=== PATIENT | male | born 1990 | race Caucasian/White ===

== ENCOUNTER 2018-08-06 03:09 | Observation (INO) ==
[2018-08-06] MEDS ORDERED: 0.9 % Sodium Chloride 1,000 ML ONE (10:39)
[2018-08-06] MEDS ORDERED: traMADol 50 MG TABLET PO PRN (10:41)
[2018-08-06] MEDS ORDERED: Naloxone 0.4 MG/ML INJ IVP PRN (10:41)
[2018-08-06 11:38] LABS: Basophils % 0.1 %; Eosinophils # 0.6 K/mcL (0.0-0.6); Eosinophils % 8.3 %; Hematocrit 29.4 % (37.5-50.1); Hemoglobin 9.9 g/dL (12.9-16.9); Immature Granulocytes % 0.4 % (0-4); Lymphocytes % 44.6 %; Mean Corpuscular HGB Conc 33.7 g/dL (31.6-35.5); Mean Corpuscular Volume 71.4 fL (83.0-100.0); Mean Platelet Volume 10.2 fL (9.4-12.4); Monocytes # 0.4 K/mcL (0.0-1.3); Monocytes % 5.4 %; Platelet Count 371 K/mcL (140-400); Red Blood Count 4.12 M/mcL (4.19-5.50); Red Cell Distribution Width 20.3 % (11.5-14.5); Segmented Neutrophils % 41.2 %
[2018-08-06 11:39] LABS: Lymphocytes # 3.3 K/mcL (0.6-4.6)
[2018-08-06 11:40] LABS: INR 1.1; Prothrombin Time 11.9 Seconds (9.4-12.1)
[2018-08-06 11:43] LABS: Activated Partial Thrombo Time 39.4 Seconds (26.0-36.0)
[2018-08-06 11:52] LABS: Alanine Aminotransferase 314 Units/L (7-52); Albumin 2.7 g/dL (3.5-5.7); Albumin/Globulin Ratio 0.8 (1.1-2.2); Alkaline Phosphatase 241 Units/L (34-104); Aspartate Amino Transferase 126 Units/L (13-39); BUN/Creatinine Ratio 10 (6-26); Bilirubin,Direct 2.5 mg/dL (0.0-0.2); Bilirubin,Indirect 2.3 mg/dL (0.0-1.2); Bilirubin,Total 4.8 mg/dL (0.3-1.0); Blood Urea Nitrogen 5 mg/dL (6-20); C-Reactive Protein 7 mg/L (Less than 10); Calcium 7.9 mg/dL (8.6-10.3); Carbon Dioxide 27 mEq/L (23-29); Chloride 104 mEq/L (98-107); Globulin 3.5 g/dL (2.4-3.5); Glucose 100 mg/dL (70-105); Magnesium 1.8 mg/dL (1.6-2.6); Osmolality,Calculated 277 (280-300); Phosphorous 3.6 mg/dL (2.7-4.5); Potassium 3.4 mEq/L (3.5-5.1); Sodium 135 mEq/L (136-145); Total Protein 6.2 g/dL (6.4-8.9); eGFR For Non-African Americans > 60 (> 60)
[2018-08-06 12:04] LABS: Target Cells 2+ (Not Present)
[2018-08-06 12:05] LABS: Anisocytosis 1+ (Not Present); Platelet Estimate Normal (Normal)
--- NOTE | 2018-08-06 12:34 | Internal Med History&Physical ---
Date of Encounter: 08/06/18 Time of Encounter: 12:24 Internal Medicine - H&P: HPI Chief complaint: turning yellow/Jaundice. swelling ot the hands b/l Admitted From: Home Plans for Post Hospital Care: Home History of present illness: Mr. Carpenter is a 28 year old male PMH of Hep C, IVU, but report that he has been cleaned for the past 2 months. Patient was transferred to this facility from [facility] due to the concern of elevated liver enzymes and Jaundice. Patient reports that for the past 4 days he has been turning yellow, he denies abdominal pain, nausea, vomiting or poor appetite. Patient also reports that his hands have been getting swelling on and off for about 6 months after he was treated with IV antibiotics for an infection. 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 Denies fever/chills. Past Med Surg Social Fam HX - Past Medical History Medical history: asthma Psychiatric history: depression - Social History Smoking Status: Current every day smoker Packs per day: 1 Smokeless Tobacco Status: No Alcohol use: none Drug use: none Internal Medicine - H&P: Meds Buprenorphine HCl [Subutex] 8 mg SL BID 08/06/18 [History] Allergy/AdvReac Type Severity Reaction Status Date / Time Penicillins Allergy Difficulty Verified 08/06/18 07:07 Breathing All Systems PM: A 10-system review of systems was performed and is negative for pertinent findings except as documented above in the HPI. - Constitutional Constitutional: no anorexia, no chills, no fever(s), no malaise, no weakness - EENT Eyes: no irritation, no pain - Cardiovascular Cardiovascular ROS IM: no chest pain, no dyspnea on exertion, no orthopnea, no palpitations - Respiratory Respiratory: no cough, no dyspnea, no snoring - Gastrointestinal Gastrointestinal: no abdominal pain, no diarrhea, no melena, no nausea, no vomiting - Genitourinary Genitourinary ROS male: no flank pain, no hematuria, no nocturia - Musculoskeletal Musculoskeletal ROS IM: joint swelling (hands b/l. ), no back pain, no numbness, no stiffness - Integumentary Integumentary IM: no erythema, no rash - Neurological Neurological ROS: no headache(s) - Psychiatric Psychiatric: no anxiety, no homicidal ideation, no suicidal ideation - Endocrine Endocrine IM: no cold intolerance, no polyphagia - Hematologic/Lymphatic Hematologic/Lymphatic: no easy bruising - Allergic/Immunologic Additional comments: Rest of the review of system negative. - Constitutional Vitals: Temp Pulse Resp BP Pulse Ox 98.2 F 69 14 128/64 97 08/06/18 10:31 08/06/18 10:31 08/06/18 10:31 08/06/18 10:31 08/06/18 10:31 Exam: General: Alert and oriented x4. In mild distress due to b/l hand pain. Skin: cracked dry lips, multiple track hudson from IV drugs, HEENT: conjunctiva jaundice, EOM, pupils equal, round and reactive. Cardiovascular: Tachycardia, Normal S1 & S2, no rubs, murmurs or gallops. Lungs: CTA, no wheezes or crackles. Abdomen: Soft, non-tender, no rigidity. NABS in all 4 quadrants Extremities: No deformity, no edema or tenderness, no joint swelling or clu bbing. Neurological: Normal cognition and motor skills. Rest of the physical exam is non contributory Internal Med - H&P Results - Labs CBC & Chem 7: 08/06/18 10:41 08/06/18 10:43 Labs: Short CBC 08/06/18 Range/Units 10:41 WBC 7.3 (4.3-11.1) K/mcL Hgb 9.9 L (12.9-16.9) g/dL Hct 29.4 L (37.5-50.1) % Plt Count 371 (140-400) K/mcL Neutrophils # 3.0 (1.6-8.9) K/mcL BMP 08/06/18 10:43 Sodium 135 L Potassium 3.4 L Chloride 104 Carbon Dioxide 27 BUN 5 L Creatinine 0.52 L Glucose 100 Calcium 7.9 L Liver Function 08/06/18 Range/Units 10:43 Total Bilirubin 4.8 H (0.3-1.0) mg/dL Direct Bilirubin 2.5 H (0.0-0.2) mg/dL AST 126 H (13-39) Units/L ALT 314 H (7-52) Units/L Alkaline Phosphatase 241 H (34-104) Units/L Albumin 2.7 L (3.5-5.7) g/dL - Assessment and plan (1) Transaminitis Current Visit: Yes Status: Acute Assessment and plan: Possible due to Hep c. Plan Hepatitis panel GI consult Abd US AM LFts CT abd/pelvis (2) Cellulitis and abscess of hand Current Visit: Yes Status: Acute Assessment and plan: Plan: Patient started on empiric antibiotics x-rays of both hands US of the upper extr b/l to r/o DVT and collections consider ID consult ESR CRP blood culture (3) IVDU (intravenous drug user) Current Visit: Yes Status: Acute Assessment and plan: As per patient he has been clean for about 2 months. Urine drug screen TTE (4) Hypokalemia Current Visit: Yes Status: Acute Assessment and plan: Electrolyte replacement. f/u AM BMP. - Time Spent With Patient Total time spent is greater than 50% in coordination of care (as documented) at patient's floor/unit and/or counseling patient: 25 - 35 minutes
[2018-08-06 12:42] LABS: Amphetamine Screen,Urine Positive ng/mL (Cutoff=1000); Barbiturate Screen,Urine Negative ng/mL (Cutoff=200); Benzodiazepines Screen,Urine Negative ng/mL (Cutoff=200); Cannabinoid Screen,Urine Positive ng/mL (Cutoff = 50); Cocaine Screen,Urine Negative ng/mL (Cutoff= 300); Opiate Screen,Urine Negative ng/mL (Cutoff=300); Phencyclidine Screen,Urine Negative ng/mL (Cutoff=25)
[2018-08-06] MEDS: 0.9 % Sodium Chloride 1,000 ML IVC SCH ×2 (13:28→23:16)
[2018-08-06 13:29] LABS: Hepatitis B Surface Antigen Nonreactive (Nonreactive)
[2018-08-06] MEDS: Nicotine 21 MG PATCH.TD24 TD SCH (18:25)
[2018-08-06] MEDS: *HR* Buprenorphine HCl 8 MG TAB.SUBL SL SCH (19:00)
[2018-08-07 05:08] LABS: Alanine Aminotransferase 261 Units/L (7-52); Albumin 2.7 g/dL (3.5-5.7); Albumin/Globulin Ratio 0.7 (1.1-2.2); Alkaline Phosphatase 229 Units/L (34-104); Aspartate Amino Transferase 97 Units/L (13-39); Bilirubin,Direct 1.8 mg/dL (0.0-0.2); Bilirubin,Indirect 1.8 mg/dL (0.0-1.2); Bilirubin,Total 3.6 mg/dL (0.3-1.0); Globulin 3.7 g/dL (2.4-3.5); Total Protein 6.4 g/dL (6.4-8.9)
[2018-08-07] MEDS: *HR* Buprenorphine HCl 8 MG TAB.SUBL SL SCH ×2 (06:58→19:30)
[2018-08-07] MEDS: Nicotine 21 MG PATCH.TD24 TD SCH (09:56)
[2018-08-07] MEDS ORDERED: *HR* Heparin 5,000 UNIT/ML VIAL IVP PRN (10:58)
[2018-08-07] MEDS ORDERED: *HR* Heparin 5,000 UNIT/ML VIAL IVP ONE (10:58)
[2018-08-07] MEDS: Heparin 25,000 UNIT/500 ML D5W 25,000 UNIT/500 ML BAG IVC SCH (13:35)
[2018-08-07 14:26] LABS: Hematocrit 30.8 % (37.5-50.1); Hemoglobin 10.2 g/dL (12.9-16.9); Mean Corpuscular HGB Conc 33.1 g/dL (31.6-35.5); Mean Corpuscular Hemoglobin 24.6 pg (28.0-33.3); Mean Corpuscular Volume 74.2 fL (83.0-100.0); Mean Platelet Volume 10.3 fL (9.4-12.4); Platelet Count 391 K/mcL (140-400); Red Blood Count 4.15 M/mcL (4.19-5.50); Red Cell Distribution Width 21.3 % (11.5-14.5)
--- NOTE | 2018-08-07 14:55 | Internal Med Progress Note ---
Hospitalist Progress Note - Encounter Date of Encounter: 08/07/18 Time of Encounter: 14:53 - Subjective Interval History: patient seen and evaluated at bedside. He reports improvement of his symptoms, reports that the pain in and swelling in his hands have improved. denies abdominal pain, nausea, vomiting or anorexia. reports that he is eating 100% of his diet. - Exam Vitals: Temp Pulse Resp BP Pulse Ox 98.3 F 71 14 126/71 97 08/07/18 14:35 08/07/18 14:35 08/07/18 14:35 08/07/18 14:35 08/07/18 14:35 Exam: General: Alert and oriented x4. In mild distress due to b/l hand pain. Skin: cracked dry lips, improved from yesterday, multiple track hudson from IV drugs, HEENT: minimal conjunctiva jaundice. Cardiovascular: RRR, Normal S1 & S2, no rubs, murmurs or gallops. Lungs: CTA, no wheezes or crackles. Abdomen: Soft, non-tender, no rigidity. NABS in all 4 quadrants Extremities: No edema or tenderness, no joint swelling or clubbing. Neurological: Normal cognition and motor skills. Rest of the physical exam is non contributory - Assessment and Plan (1) Transaminitis Current Visit: Yes Status: Acute Assessment and Plan: Possible Hep C due to patient Hx of IVDU. LFTs trending down Plan GI has been consulted, will follow recommendations Abd/Pelv CT showed no acute abnormalities Abd US pending f/u LFTs in the morning Acute hepatitis panel sent will continue IV hydration for at 24 more hours. (2) Cellulitis and abscess of hand Current Visit: Yes Status: Acute Assessment and Plan: edema and erythema of the hands has significantly improved. Will continue vancomycin and cipro for at 24 more hours. will de-scale antibiotics after 48 if blood cultures remain negative tramadol 50mg/PO Q6HR PRN for pain control. (3) IVDU (intravenous drug user) Current Visit: Yes Status: Acute Assessment and Plan: Hx of IVDU. On biprenorphine. As per patient he gets his medication at [facility]. (4) Superficial venous thrombosis of both upper extremities Current Visit: Yes Status: Acute Assessment and Plan: Venous dupplex us: Bilateral upper extremity venous duplex exam completed. Positive SVT bilaterally in the Cephalic V and positive SVT in the Basilic V in the left UE. Negative DVT bilaterally. Plan Started patient on full dose anticoagulation as patient is high risk due to his recent hx of IVDU. Hem&Onc consulted to clarify wether patient might need to be on anticoagulation in the outpatient setting. DVT Prophylaxis: Patient on full dose anticoagulation. - Summary of Assessment and Plan Summary of Assessment and Plan: patient to remain in the hospital for at least 24 more hours to continue IV antibiotics. Potential DC tomorrow pending GI evaluation. - Time Spent with Patient Total time spent is greater than 50% in coordination of care (as documented) at patient's floor/unit and/or counseling patient: 25 - 35 minutes Plan of Care Discussed with: patient Internal Medicine: Result - Labs CBC & Chem 7: 08/07/18 14:10 08/06/18 10:43 Labs: Short CBC 08/07/18 Range/Units 14:10 WBC 8.5 (4.3-11.1) K/mcL Hgb 10.2 L (12.9-16.9) g/dL Hct 30.8 L (37.5-50.1) % Plt Count 391 (140-400) K/mcL Liver Function 08/07/18 Range/Units 04:17 Total Bilirubin 3.6 H (0.3-1.0) mg/dL Direct Bilirubin 1.8 H (0.0-0.2) mg/dL AST 97 H (13-39) Units/L ALT 261 H (7-52) Units/L Alkaline Phosphatase 229 H (34-104) Units/L Albumin 2.7 L (3.5-5.7) g/dL - ABG Interpretation ABG results: PT/INR, D-dimer PT 11.9 Seconds (9.4-12.1) 08/06/18 10:41 - Impressions Impressions Abdomen/Pelvis CT 08/06/18 12:19 IMPRESSION: 1. No acute intra-abdominal or intrapelvic process. 2. Minimal amount of free fluid along the right pericolic gutter, of questionable clinical significance. 3. Trace bilateral pleural effusions with mild bibasilar atelectasis. D/ / 08/06/2018 17:54:09 Benji Owens MD / bcarter Interpreting Provider: Benji Owens MD Hand X-Ray 08/06/18 12:19 IMPRESSION: Negative examination the bilateral hands with no acute osseous abnormality. D/ / Blayne James MD / Blayne James MD Interpreting Provider: Blayne James MD Hand X-Ray 08/06/18 12:19 IMPRESSION: Negative examination the bilateral hands with no acute osseous abnormality. D/ / Blayne James MD / Blayne James MD Interpreting Provider: Blayne James MD Echocardiogram 08/07/18 12:21 Impressions: LVEF 60%. Normal left ventricular diastolic function. Normal right ventricular structure and function. Mild tricuspid regurgitation. No pulmonary hypertension. Consult Discharge Plan - Plan Referrals: NONE,PCP [Primary Care Provider] -
[2018-08-07] MEDS: 0.9 % Sodium Chloride 1,000 ML IVC SCH (16:00)
[2018-08-07 20:04] LABS: Heparin anti-factor XA UFH 0.15 IU/mL (0.30-0.70)
[2018-08-07 20:05] LABS: Prothrombin Time 11.1 Seconds (9.4-12.1)
[2018-08-07 20:39] LABS: BUN/Creatinine Ratio 15 (6-26); Blood Urea Nitrogen 7 mg/dL (6-20); Calcium 8.1 mg/dL (8.6-10.3); Carbon Dioxide 20 mEq/L (23-29); Chloride 105 mEq/L (98-107); Glucose 105 mg/dL (70-105); Magnesium 1.8 mg/dL (1.6-2.6); Osmolality,Calculated 274 (280-300); Phosphorous 3.1 mg/dL (2.7-4.5); Potassium 4.2 mEq/L (3.5-5.1); Sodium 133 mEq/L (136-145); eGFR For Non-African Americans > 60 (> 60)
[2018-08-07] MEDS: *HR* Heparin 5,000 UNIT/ML VIAL IVP PRN (23:18)
[2018-08-08 02:32] LABS: Hepatitis B Core IgM Nonreactive (Nonreactive)
[2018-08-08 02:44] LABS: Hepatitis A Antibody IgM Reactive (Nonreactive)
[2018-08-08 02:47] LABS: Hepatitis C Virus Antibody Reactive (Nonreactive)
[2018-08-08 05:35] VITALS: BP 126/62
[2018-08-08 05:56] LABS: Alanine Aminotransferase 199 Units/L (7-52); Albumin 2.9 g/dL (3.5-5.7); Albumin/Globulin Ratio 0.8 (1.1-2.2); Alkaline Phosphatase 204 Units/L (34-104); Aspartate Amino Transferase 68 Units/L (13-39); BUN/Creatinine Ratio 18 (6-26); Bilirubin,Direct 1.4 mg/dL (0.0-0.2); Bilirubin,Indirect 1.6 mg/dL (0.0-1.2); Blood Urea Nitrogen 9 mg/dL (6-20); Calcium 8.7 mg/dL (8.6-10.3); Carbon Dioxide 25 mEq/L (23-29); Chloride 106 mEq/L (98-107); Globulin 3.7 g/dL (2.4-3.5); Glucose 114 mg/dL (70-105); Magnesium 1.9 mg/dL (1.6-2.6); Osmolality,Calculated 280 (280-300); Phosphorous 3.9 mg/dL (2.7-4.5); Potassium 4.1 mEq/L (3.5-5.1); Sodium 135 mEq/L (136-145); Total Protein 6.6 g/dL (6.4-8.9); eGFR For Non-African Americans > 60 (> 60)
[2018-08-08 07:10] LABS: Basophils % 0.4 %; Eosinophils # 0.8 K/mcL (0.0-0.6); Hematocrit 32.7 % (37.5-50.1); Hemoglobin 10.7 g/dL (12.9-16.9); Immature Granulocytes % 0.6 % (0-4); Lymphocytes # 4.8 K/mcL (0.6-4.6); Lymphocytes % 57.9 %; Mean Corpuscular HGB Conc 32.7 g/dL (31.6-35.5); Mean Corpuscular Hemoglobin 24.7 pg (28.0-33.3); Mean Corpuscular Volume 75.3 fL (83.0-100.0); Mean Platelet Volume 10.1 fL (9.4-12.4); Monocytes # 0.6 K/mcL (0.0-1.3); Platelet Count 433 K/mcL (140-400); Red Blood Count 4.34 M/mcL (4.19-5.50); Red Cell Distribution Width 22.5 % (11.5-14.5); Segmented Neutrophils % 24.1 %
[2018-08-08 07:31] LABS: Platelet Estimate Normal (Normal)
[2018-08-08] MEDS: *HR* Buprenorphine HCl 8 MG TAB.SUBL SL SCH (10:05)
[2018-08-08] MEDS: Nicotine 21 MG PATCH.TD24 TD SCH (10:05)
[2018-08-08] MEDS: *HR* Heparin 5,000 UNIT/ML VIAL IVP PRN (10:10)
[2018-08-08] MEDS: Heparin 25,000 UNIT/500 ML D5W 25,000 UNIT/500 ML BAG IVC SCH (11:30)
--- NOTE | 2018-08-08 12:23 | Oncology Inp Consult Note ---
Date of Encounter: 08/08/18 (n) Time of Encounter: 12:20 Assessment and Plan (1) Superficial venous thrombosis of both upper extremities Status: Acute Assessment and plan: Bilateral venous doppler revealed Acute thrombosis right cephalic forearm vein and Acute thrombosis left cephalic forearm and left basilic forearm vein. He has symptomatically improved since admission with IV heparin and treatment of his BUE cellulitis. Reports Edema to BUE has improved almost to baseline today, he denies pain. We discussed that SVT of the BUE is typically benign and resolves with supportive measures without the use of AC. Recommended cold compress to BUE and use of NSAID to help with inflammatory symptoms. Advised patient that his SVT's are likely secondary to IVDA, and continued IVDA places him at risk for further complications. We discussed that there are some recommendations that discuss use of short term therapy with Xarelto, however, patient agrees with treatment of supportive measures at this time. He was advised of the rare risk of extension into DVT and advised to present if edema/pain worsens for further assessment. - Data of Consult Patient: new to practice Consult date: 08/08/18 Requesting Physician: Trey Figueredo MD Primary Care Provider: PCP NONE - Consult Narrative Reason for consult: BUE SVT History of present illness: Mr. Carpenter is a 28 year old male with past medical history of Hepatitis C and IV drug abuse, initially presented to [facility] ER for concern for jaundice. Patient reports he has been clean for two months however, urine tox on admission shows that he tested positive for amphetamines and THC. He was transferred to [facility] for further evaluation. He was admitted with transaminitis, cellulitis of BUE and SVT of BUE. Bilateral venous doppler revealed Acute thrombosis right cephalic forearm vein and Acute thrombosis left cephalic forearm and left basilic forearm vein. He was started on IV heparin. Hematology consulted for further recommendations. Mr. Carpenter denies anabolic steroid abuse, he also denies personal or family history of blood clots. He denies calf pain, erythema or edema, SOB, pain with inspiration or chest pain. Past Med Surg Social Fam HX - Past Medical History Medical history: asthma Psychiatric history: depression - Social History Smoking Status: Current every day smoker Packs per day: 1 Smokeless Tobacco Status: No Alcohol use: none Drug use: none Medications and Allergies No Known Home Drugs 08/06/18 [History] Allergy/AdvReac Type Severity Reaction Status Date / Time Penicillins Allergy Difficulty Verified 08/06/18 07:07 Breathing Constitutional: Present: fatigue. Absent: chills, fever(s), night sweats, weight loss Eyes: Absent: change in vision Nose, mouth and throat: Absent: dysphagia Cardiovascular: Absent: chest pain, palpitations Respiratory: Absent: cough, dyspnea, pain on inspiration Gastrointestinal: Absent: abdominal pain, hematochezia, melena, nausea, vomiting Additional comments: denies dysuria Musculoskeletal: Present: muscle weakness Integumentary: Present: sores Neurological: Absent: focal weakness Psychiatric: Present: as per HPI Hematologic/Lymphatic: Present: as per HPI Oncology - Exam - Constitutional Vitals: Temp Pulse Resp BP Pulse Ox 97.9 F 75 16 126/62 99 08/08/18 10:11 08/08/18 10:11 08/08/18 10:11 08/08/18 10:11 08/08/18 10:11 General appearance: disheveled, no acute distress, no febrile - Head Head exam: Present: atraumatic - Eye Additional comments: mild conjunctival jaundice - ENT ENT exam: Present: mucous membranes dry Additional comments: dry, cracked lips - Respiratory Respiratory exam: Present: CTAB. Absent: respiratory distress - Cardiovascular Cardiovascular exam: Present: RRR, +S1, +S2 - GI/Abdominal GI/Abdominal exam: Present: normal bowel sounds, soft. Absent: tenderness - Extremities Exam Extremities exam: Absent: calf tenderness Additional comments: mild pedal edema, no calf pain, edema or erythema - Neurological Exam Neurological exam: Present: alert, oriented X3, no focal deficits, strengths equal and symetr throughout - Psychiatric Psychiatric exam: Present: normal affect, normal mood - Skin Skin exam: Present: dry, warm Additional comments: multiple scattered scabbed areas with pinpoint track hudson, no open or draining wounds on observed skin, minimal erythema and edema to BUE Oncology - Results Labs: 08/08/18 08/08/18 08/08/18 05:28 05:22 05:22 WBC RBC Hgb Hct MCV MCH MCHC RDW Plt Count MPV Immature Gran % Seg Neutrophils % Lymphocytes % Monocytes % Eosinophils % Basophils % Neutrophils # Lymphocytes # Monocytes # Eosinophils # Basophils # Platelet Estimate Anisocytosis Target Cells ESR PT INR APTT Heparin Anti-Xa, Unfract 0.15 L Sodium 135 L Potassium 4.1 Chloride 106 Carbon Dioxide 25 BUN 9 Creatinine 0.51 L Est GFR ( Amer) > 60 Est GFR (Non-Af Amer) > 60 BUN/Creatinine Ratio 18 Glucose 114 H POC Glucose 106 H Calculated Osmolality 280 Calcium 8.7 Phosphorus 3.9 Magnesium 1.9 Total Bilirubin 3.0 H Direct Bilirubin 1.4 H Indirect Bilirubin 1.6 H AST 68 H ALT 199 H Alkaline Phosphatase 204 H C-Reactive Protein Serum Total Protein 6.6 Albumin 2.9 L Globulin 3.7 H Albumin/Globulin Ratio 0.8 L Vancomycin Trough Urine Opiates Screen Ur Barbiturates Screen Ur Phencyclidine Scrn Ur Amphetamines Screen U Benzodiazepines Scrn Urine Cocaine Screen U Marijuana (THC) Screen Ur Drug Screen Interp Hepatitis A IgM Ab Hep Bs Antigen Hep B Core IgM Ab Hepatitis C Ab Screen 08/08/18 08/07/18 08/07/18 04:00 22:00 19:50 WBC 8.3 RBC 4.34 Hgb 10.7 L Hct 32.7 L MCV 75.3 L MCH 24.7 L MCHC 32.7 RDW 22.5 H Plt Count 433 H MPV 10.1 Immature Gran % 0.6 Seg Neutrophils % 24.1 Lymphocytes % 57.9 Monocytes % 7.0 Eosinophils % 10.0 Basophils % 0.4 Neutrophils # 2.0 Lymphocytes # 4.8 H Monocytes # 0.6 Eosinophils # 0.8 H Basophils # 0.0 Platelet Estimate Normal Anisocytosis Target Cells ESR PT 11.1 INR 1.0 APTT Heparin Anti-Xa, Unfract 0.15 L Sodium Potassium Chloride Carbon Dioxide BUN Creatinine Est GFR ( Amer) Est GFR (Non-Af Amer) BUN/Creatinine Ratio Glucose POC Glucose Calculated Osmolality Calcium Phosphorus Magnesium Total Bilirubin Direct Bilirubin Indirect Bilirubin AST ALT Alkaline Phosphatase C-Reactive Protein Serum Total Protein Albumin Globulin Albumin/Globulin Ratio Vancomycin Trough 5 Urine Opiates Screen Ur Barbiturates Screen Ur Phencyclidine Scrn Ur Amphetamines Screen U Benzodiazepines Scrn Urine Cocaine Screen U Marijuana (THC) Screen Ur Drug Screen Interp Hepatitis A IgM Ab Hep Bs Antigen Hep B Core IgM Ab Hepatitis C Ab Screen 08/07/18 08/07/18 08/06/18 14:10 04:17 10:48 WBC 8.5 RBC 4.15 L Hgb 10.2 L Hct 30.8 L MCV 74.2 L MCH 24.6 L MCHC 33.1 RDW 21.3 H Plt Count 391 MPV 10.3 Immature Gran % Seg Neutrophils % Lymphocytes % Monocytes % Eosinophils % Basophils % Neutrophils # Lymphocytes # Monocytes # Eosinophils # Basophils # Platelet Estimate Anisocytosis Target Cells ESR PT INR APTT Heparin Anti-Xa, Unfract Sodium 133 L Potassium 4.2 Chloride 105 Carbon Dioxide 20 L BUN 7 Creatinine 0.47 L Est GFR ( Amer) > 60 Est GFR (Non-Af Amer) > 60 BUN/Creatinine Ratio 15 Glucose 105 POC Glucose Calculated Osmolality 274 L Calcium 8.1 L Phosphorus 3.1 Magnesium 1.8 Total Bilirubin 3.6 H Direct Bilirubin 1.8 H Indirect Bilirubin 1.8 H AST 97 H ALT 261 H Alkaline Phosphatase 229 H C-Reactive Protein Serum Total Protein 6.4 Albumin 2.7 L Globulin 3.7 H Albumin/Globulin Ratio 0.7 L Vancomycin Trough Urine Opiates Screen Ur Barbiturates Screen Ur Phencyclidine Scrn Ur Amphetamines Screen U Benzodiazepines Scrn Urine Cocaine Screen U Marijuana (THC) Screen Ur Drug Screen Interp Hepatitis A IgM Ab Reactive H Hep Bs Antigen Nonreactive Hep B Core IgM Ab Nonreactive Hepatitis C Ab Screen Reactive H 08/06/18 08/06/18 08/06/18 10:44 10:43 10:41 WBC RBC Hgb Hct MCV MCH MCHC RDW Plt Count MPV Immature Gran % Seg Neutrophils % Lymphocytes % Monocytes % Eosinophils % Basophils % Neutrophils # Lymphocytes # Monocytes # Eosinophils # Basophils # Platelet Estimate Anisocytosis Target Cells ESR 30 H PT 11.9 INR 1.1 APTT 39.4 H Heparin Anti-Xa, Unfract Sodium 135 L Potassium 3.4 L Chloride 104 Carbon Dioxide 27 BUN 5 L Creatinine 0.52 L Est GFR ( Amer) > 60 Est GFR (Non-Af Amer) > 60 BUN/Creatinine Ratio 10 Glucose 100 POC Glucose Calculated Osmolality 277 L Calcium 7.9 L Phosphorus 3.6 Magnesium 1.8 Total Bilirubin 4.8 H Direct Bilirubin 2.5 H Indirect Bilirubin 2.3 H AST 126 H ALT 314 H Alkaline Phosphatase 241 H C-Reactive Protein 7 Serum Total Protein 6.2 L Albumin 2.7 L Globulin 3.5 Albumin/Globulin Ratio 0.8 L Vancomycin Trough Urine Opiates Screen Ur Barbiturates Screen Ur Phencyclidine Scrn Ur Amphetamines Screen U Benzodiazepines Scrn Urine Cocaine Screen U Marijuana (THC) Screen Ur Drug Screen Interp Hepatitis A IgM Ab Hep Bs Antigen Hep B Core IgM Ab Hepatitis C Ab Screen 08/06/18 08/06/18 10:41 08:50 WBC 7.3 RBC 4.12 L Hgb 9.9 L Hct 29.4 L MCV 71.4 L MCH 24.0 L MCHC 33.7 RDW 20.3 H Plt Count 371 MPV 10.2 Immature Gran % 0.4 Seg Neutrophils % 41.2 Lymphocytes % 44.6 Monocytes % 5.4 Eosinophils % 8.3 Basophils % 0.1 Neutrophils # 3.0 Lymphocytes # 3.3 Monocytes # 0.4 Eosinophils # 0.6 Basophils # 0.0 Platelet Estimate Normal Anisocytosis 1+ A Target Cells 2+ A ESR PT INR APTT Heparin Anti-Xa, Unfract Sodium Potassium Chloride Carbon Dioxide BUN Creatinine Est GFR ( Amer) Est GFR (Non-Af Amer) BUN/Creatinine Ratio Glucose POC Glucose Calculated Osmolality Calcium Phosphorus Magnesium Total Bilirubin Direct Bilirubin Indirect Bilirubin AST ALT Alkaline Phosphatase C-Reactive Protein Serum Total Protein Albumin Globulin Albumin/Globulin Ratio Vancomycin Trough Urine Opiates Screen Negative Ur Barbiturates Screen Negative Ur Phencyclidine Scrn Negative Ur Amphetamines Screen Positive H U Benzodiazepines Scrn Negative Urine Cocaine Screen Negative U Marijuana (THC) Screen Positive H Ur Drug Screen Interp See Below Hepatitis A IgM Ab Hep Bs Antigen Hep B Core IgM Ab Hepatitis C Ab Screen Consult Discharge Plan - Plan Referrals: NONE,PCP [Primary Care Provider] -
--- NOTE | 2018-08-08 12:34 | Gastroenterology Consult Note ---
<Ruben Bustillos - Last Filed: 08/08/18 12:37> Date of Encounter: 08/08/18 Time of Encounter: 11:10 - Time Spent With Patient Total time spent is greater than 50% in coordination of care (as documented) at patient's floor/unit and/or counseling patient: GI History of Present Illness - Data of Consult Patient: new to practice Consult date: 08/08/18 Requesting Physician: Trey Figueredo MD - Consult Narrative Reason for consult: Elevated LFTs, jaundice History of present illness: Mr. Carpenter is a 28 year old male with PMHx of asthma, Hep C, IV drug use and last used 4 days ago. He has several unprofessional tattoos. He reports eating at fast food restaurants frequently. Patient was transferred to this facility from [facility] due to the concern of elevated liver enzymes and jaundice. Patient reports that for the past 4 days he has been turning yellow, he denies abdominal pain, nausea, vomiting or poor appetite. Hgb on admission 9.9 with MCV 71.4 and this AM 10.7 with MCV 75.3. Hepatitis profile positive for Hep A and screening positive for Hep C. On admission TB 4.8, AST 126, ALT 314, positive for amphetamines and marijuana. Today, TB 3, AST 68, and ALT 199. Procedures: None NSAIDs: None Anticoagulation: None A/P 1. Hepatitis A: - Continue to monitor LFTs. - HAV infection is usually a self-limited illness. - Fulminant hepatic failure occurs in less than 1 percent of cases. - Infection confers lifelong immunity. - Handwashing (including after using the bathroom, changing diapers, and before preparing or eating foods). - Heating foods appropriately (the virus can be inactivated by heating to >185F for one minute). Cooked foods can transmit HAV if the temperature during food preparation is inadequate to kill the virus or if food is contaminated after cooking. - Chlorine, iodine, and disinfecting solutions (household bleach 1:100 dilution) are effective for inactivation of HAV. 2. Hepatitis C antibody positive Check hepatitis C quant and genotype to determine if he has an active Hep C infection. Complete liver workup. Instructed patient to not share any thing that could potentially cause bleeding such as razors, nail clippers, hair clippers. Instructed patient that if they were to cut themselves they need to clean up the blood or if someone else cleans up they need to wear gloves. Instructed patient they need to use protection while having sex. 3. IV drug use Patient will need to be drug and alcohol free in order to qualify for Hep C treatment. Past Med Surg Social Fam HX - Past Medical History Medical history: asthma Psychiatric history: depression - Social History Smoking Status: Current every day smoker Packs per day: 1 Smokeless Tobacco Status: No Alcohol use: none Drug use: none - Gastrointestinal Gastrointestinal: Present: as per HPI - Constitutional Constitutional: as per HPI - EENT Eyes: as per HPI Ears: Present: as per HPI Nose, mouth and throat: Present: as per HPI - Cardiovascular Cardiovascular ROS: Present: as per HPI - Respiratory Respiratory IM: Present: as per HPI - Genitourinary Genitourinary: Absent: change in color, Urinary frequency - Neurological ROS Neurological GI: Present: as per HPI - Hematologic/Lymphatic Hematologic/Lymphatic pediatric: Present: as per HPI - Musculoskeletal Musculoskeletal ROS GI: Present: as per HPI - Integumentary Integumentary GI: Present: as per HPI - Psychiatric ROS Psychiatric GI: Present: as per HPI - Endocrine Endocrine IM: Present: as per HPI - Constitutional Vitals: Temp Pulse Resp BP Pulse Ox 97.9 F 75 16 126/62 99 08/08/18 10:11 08/08/18 10:11 08/08/18 10:11 08/08/18 10:11 08/08/18 10:11 General appearance: Present: cooperative, A&O X 3, no acute distress, answers questions appropriately - Head Head exam: Present: atraumatic, normocephalic - Eye Eye exam: Present: scleral icterus. Absent: normal appearance - ENT ENT exam: Present: mucous membranes moist - Neck Neck exam general surgery: Present: normal inspection, trachea midline - Respiratory Respiratory exam: Present: CTAB. Absent: rales, rhonchi - Cardiovascular Cardiovascular exam: Present: RRR, +S1, +S2 - GI/Abdominal GI/Abdominal exam: Present: soft, no peritoneal signs. Absent: distended, firm, guarding, tenderness - Rectal Rectal exam: Present: deferred - Extremities Exam Extremities exam: Present: warm - Neurological Exam Neurological exam: Present: no focal deficits - Psychiatric Psychiatric exam: Present: normal affect, normal mood - Skin Skin exam: Present: dry, intact, normal color, warm Results - Labs CBC & Chem 7: 08/08/18 04:00 08/08/18 05:22 Labs: Last Result ESR 30 mm/hr (0-10) H 08/06/18 10:44 Calcium 8.7 mg/dL (8.6-10.3) 08/08/18 05:22 C-Reactive Protein 7 mg/L (Less than 10) 08/06/18 10:43 Urine Opiates Screen Negative ng/mL (Srejia=242) 08/06/18 08:50 Entire Visit Hgb 10.7 g/dL (12.9-16.9) L 08/08/18 04:00 Hct 32.7 % (37.5-50.1) L 08/08/18 04:00 PT 11.1 Seconds (9.4-12.1) 08/07/18 19:50 Total Bilirubin 3.0 mg/dL (0.3-1.0) H 08/08/18 05:22 AST 68 Units/L (13-39) H 08/08/18 05:22 ALT 199 Units/L (7-52) H 08/08/18 05:22 - ABG ABG results: PT/INR, D-dimer PT 11.1 Seconds (9.4-12.1) 08/07/18 19:50 - Impressions Impressions Echocardiogram 08/07/18 12:21 Impressions: LVEF 60%. Normal left ventricular diastolic function. Normal right ventricular structure and function. Mild tricuspid regurgitation. No pulmonary hypertension. Abdomen Ultrasound 08/08/18 08:00 IMPRESSION: 1. No evidence of gallstones. There is a small amount of pericholecystic fluid, nonspecific. 2. No focal liver lesion is identified. 3. There are several prominent periportal lymph nodes, likely reactive. D/ / 08/08/2018 09:08:32 Mic Reyes MD / [email or web address] Interpreting Provider: Mic Reyes MD Consult Discharge Plan - Plan Instructions: Cellulitis (DC) Referrals: Ruben Bustillos, [employer] [Advanced Practice Nurse] - (Web request entered. Office will call patient with date and time of appointment. Thank you) Gabrielle Liriano, [employer] [Advanced Practice Nurse] - 08/15/18 1:30 pm (Please arrive at 1:00 to fill out paperwork. Please bring your photo ID, insurance card and any medications you are on. If you need to cancel, please give a 24 hour notice. Thank you) Prescriptions: RX: Clindamycin [Cleocin] 300 mg PO Q12HR 5 Days #10 capsule <Kishore Nicholson - Last Filed: 08/12/18 10:33> - Time Spent With Patient Total time spent is greater than 50% in coordination of care (as documented) at patient's floor/unit and/or counseling patient: GI History of Present Illness - Data of Consult Requesting Physician: Trey Figueredo MD - Consult Narrative History of present illness: Mr. Carpenter is a 28 year old male - Constitutional Vitals: Temp Pulse Resp BP Pulse Ox 97.9 F 75 16 126/62 99 08/08/18 10:11 08/08/18 10:11 08/08/18 10:11 08/08/18 10:11 08/08/18 10:11 Results - Labs CBC & Chem 7: 08/08/18 04:00 08/08/18 05:22 Labs: Last Result ESR 30 mm/hr (0-10) H 08/06/18 10:44 Calcium 8.7 mg/dL (8.6-10.3) 08/08/18 05:22 Ferritin 86 ng/mL (20-250) 08/08/18 13:50 C-Reactive Protein 7 mg/L (Less than 10) 08/06/18 10:43 Urine Opiates Screen Negative ng/mL (Cvayjd=599) 08/06/18 08:50 Entire Visit Hgb 10.7 g/dL (12.9-16.9) L 08/08/18 04:00 Hct 32.7 % (37.5-50.1) L 08/08/18 04:00 PT 11.1 Seconds (9.4-12.1) 08/07/18 19:50 Ferritin 86 ng/mL (20-250) 08/08/18 13:50 Total Bilirubin 3.0 mg/dL (0.3-1.0) H 08/08/18 05:22 AST 68 Units/L (13-39) H 08/08/18 05:22 ALT 199 Units/L (7-52) H 08/08/18 05:22 F-Actin IgG Antibody 35 Units (0-19) H 08/08/18 13:50 - ABG ABG results: PT/INR, D-dimer PT 11.1 Seconds (9.4-12.1) 08/07/18 19:50 - Attending Attestation Supportive care. I have personally performed a face to face evaluation on this patient. I have reviewed and agree with the care plan. History and Exam by me shows:
--- NOTE | 2018-08-08 13:25 | Discharge Summary ---
- NOTES TO OUTPATIENT PROVIDER Notes to Outpatient Provider: Follow up liver function tests within a week of hospital discharge. Orders not resulted at time of discharge: Pending orders 08/06/18 08:50 Drug Screen, Urine [UCHEM] Stat 08/06/18 11:35 Culture,Blood [BC] Stat 08/08/18 10:20 AFP Tumor Marker Non- Routine MERCEDEZ IgG RODNEY rflx IFA Routine [id number] Routine Ceruloplasmin Routine F-Actin IgG Reflex Sm Muscle Routine Ferritin Routine Hepatitis C Qnt Reflx Genotype Routine MPO/PR3 (ANCA) Antibodies Routine Mitochondrial M2 Antibody, IgG Routine 08/08/18 13:01 Hepatitis C Qnt Reflx Genotype Stat 08/08/18 16:25 Heparin anti-factor XA UFH [COAG] Timed Date of Encounter: 08/08/18 Time of Encounter: 13:20 - Discharge Diagnosis (1) Transaminitis Priority: Primary Status: Acute Assessment and Plan: Due to acute hepatitis A and hepatitis C (2) Cellulitis and abscess of hand Priority: Secondary Status: Resolved (3) IVDU (intravenous drug user) Priority: Secondary Status: Chronic (4) Superficial venous thrombosis of both upper extremities Priority: Secondary Status: Acute Hospital course: Mr. Carpenter is a 28 year old male past medical history significant for IV drug abuse, hepatitis C. She was transferred to this hospital due to elevated liver enzymes. Patient admitted for cellulitis of the hands bilaterally, and acute hepatitis. Patient treated with IV antibiotics. Due to edema in the upper extremity bilaterally duplex ultrasound was done which revealed Acute thrombosis right cephalic forearm vein and Acute thrombosis left cephalic forearm and left basilic forearm vein. Discussed with hem&Onc about short period of full dose coagulation, they recommended against anticoagulating the patient and doing symptomatic treatment. GI Consulted, as LFTs have been trending down agree on discharging the patient on following up with them in a week. Patient is going to be discharged on by mouth antibiotics to complete 7 days. Patient is hemodynamically stable to be discharged home. - Time Spent with Patient Total time spent providing and/or coordinating discharge services: Less than 30 minutes - Discharge Medications Prescriptions: Clindamycin [Cleocin] 300 mg PO Q12HR 5 Days #10 capsule Home Medications: Clindamycin [Cleocin] 300 mg PO Q12HR 5 Days #10 capsule 08/08/18 [Rx] Allergies/Adverse Reactions: Allergy/AdvReac Type Severity Reaction Status Date / Time Penicillins Allergy Difficulty Verified 08/06/18 07:07 Breathing Date of admission: 08/06/18 06:46 Primary care physician: PCP NONE Consults: 08/07/18 14:41 Consult to Oncology Hematology [CONS] Routine Consulting Provider: Trey Figueredo Reason for Consult: clarification regarding anticoagulation, if needed. IVUD patient presenting with cellulitis of upper extr. Positive SVT bilaterally in the Cephalic V and positive SVT in the Basilic V in the left UE. Call Completed: No 08/07/18 14:52 Consult to Gastroenterology [CONS] Routine Consulting Provider: Gastroenterology Angi Reason for Consult: elavated liver enzimes. Jaundice. Call Completed: No - Constitutional Vitals: Temp Pulse Resp BP Pulse Ox 97.9 F 75 16 126/62 99 08/08/18 10:11 08/08/18 10:11 08/08/18 10:11 08/08/18 10:11 08/08/18 10:11 Exam: General: Alert and oriented x4. In no acute distress Skin: multiple track hudson from IV drugs, HEENT: minimal conjunctiva jaundice. Cardiovascular: RRR, Normal S1 & S2, no rubs, murmurs or gallops. Lungs: CTA, no wheezes or crackles. Abdomen: Soft, non-tender, no rigidity. NABS in all 4 quadrants Extremities: No edema. Erythema and edema of the upper extremities have resolved. Neurological: Normal cognition and motor skills. Rest of the physical exam is non contributory - Patient Status Disposition: Home, Self-Care Condition: Good Functional capacity at discharge: independent ambulation Overall status at discharge: patient is back to baseline - Discharge Instructions Follow Up With: NONE,PCP [Primary Care Provider] - - Diet and Activity Activity: resume usual activities as tolerated Diet: advance to your usual diet
[2018-08-08] MEDS ORDERED: Aminoglycoside Consult 1 EACH MC ONE (14:27)
[2018-08-11 15:53] LABS: ANA IgG by ELISA NONE DETECTED (None Detected); F-Actin (sm muscle) Ab IgG 35 Units (0-19)
[2018-08-11 15:54] LABS: HCV Quant Interpretation DETECTED (Not Detected); HCV Quant Log 2.34 log IU/mL; Myeloperoxidase Ab 0 AU/mL (0-19); Serine Protease-3 Antibody 4 AU/mL (0-19)
[2018-08-12 15:12] LABS: AFP Tumor Marker Non-Pregnant 5 ng/mL (0-9)
[2018-08-13 11:24] LABS: Smooth Muscle Ab Titer IgG 1:40 (<1:20)
== END 2018-08-08 14:28 | disposition home or self-care (01) ==
LOC: 3ANU → SUATTDRO 06:46
PROVIDERS: ADMIT Family Medicine; ATTEND Internal Medicine